=== PATIENT | male | born 1965 | race Caucasian/White ===

== ENCOUNTER 2022-10-04 13:43 | Emergency (ER) | payer OTHER ==
[2022-10-04 14:05] VITALS: TEMP 98.2
[2022-10-04] MEDS ORDERED: SODIUM CHLORIDE 0.9% 1,000 ML IV STA (14:33)
[2022-10-04] MEDS ORDERED: SODIUM CHLORIDE 0.9% 500 ML 500 ML IV STA (14:33)
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
[2022-10-04 15:13] LABS: Appearance,Urine Clear (Clear); Bilirubin,Urine Negative (Negative); Blood,Urine Negative (Negative); Color,Urine Colorless; Glucose,Urine (UA) Negative (Negative); Ketones,Urine Negative (Negative); Leukocyte Esterase,Urine Negative (Negative); Nitrite,Urine Negative (Negative); PH, Urine 5.5 (5.0-8.0); Protein,Urine Negative (Negative); Specific Gravity,Urine 1.002 (1.001-1.035); Urobilinogen,Urine <2.0 mg/dL (<2.0)
[2022-10-04 15:15] LABS: Anisocytosis Moderate; HCT 38.1 % (39.0-53.0); HGB 13.8 gm/dL (13.0-17.5); MCH 33.1 pg (25.0-35.0); MCHC 36.1 g/dL (31.0-37.0); MCV 91.7 fL (80.0-100.0); Mean Platelet Volume 8.2; Platelet Count 217 k/uL (150-450); RBC 4.16 m/uL (4.30-5.90); RDW 20.2 % (11.5-15.5); WBC 6.2 k/uL (3.8-10.6)
--- NOTE | 2022-10-04 15:24 | XR ---
EXAMINATION TYPE: XR chest 2V DATE OF EXAM: 10/04/2022 COMPARISON: None HISTORY: 57-year-old male with cough TECHNIQUE: PA and lateral views FINDINGS: Heart borderline enlarged. Mild hyperinflation. No consolidation or pleural effusion. Mild anterior w edging near the thoracolumbar junction. IMPRESSION: 1. Borderline heart size. Mild hyperinflation may relate to depth of inspiration or underlying emphys jacoby. Clinically correlate. Otherwise, no acute process seen. 2. Mild anterior wedging near the thoracolumbar junction suggests an age indeterminate mild compressi on injury. Correlate for any focal pain at this level.
[2022-10-04 15:25] LABS: Amphetamine Screen,Urine Not Detected (NotDetected); Barbiturate Screen,Urine Not Detected (NotDetected); Benzodiazepines Screen,Urine Not Detected (NotDetected); Cocaine Screen,Urine Not Detected (NotDetected); Methadone Screen, Urine Not Detected (NotDetected); Opiate Screen,Urine Not Detected (NotDetected); Oxycodone Screen, Urine Not Detected (NotDetected); Phencyclidine Screen,Urine Not Detected (NotDetected); Tricyclic Antidepressant,Urine Not Detected (NotDetected); Urn Cannabinoid Scrn Not Detected (NotDetected)
[2022-10-04] MEDS ORDERED: LORazepam 2 MG/ML INJ IV PRN ×2 (15:30)
[2022-10-04 15:40] LABS: ALT 31 U/L (4-49); AST 50 U/L (17-59); African American GFR (CKD) >90 (>60 ml/min/1.73 sqM); Albumin 4.2 g/dL (3.5-5.0); Alkaline Phosphatase 69 U/L (38-126); Anion Gap 13 mmol/L; Blood Urea Nitrogen 12 mg/dL (9-20); Carbon Dioxide 27 mmol/L (22-30); Chloride 104 mmol/L (98-107); Lipase 189 U/L (23-300); Magnesium 1.8 mg/dL (1.6-2.3); Non-African American GFR(CKD) >90 (>60 ml/min/1.73 sqM); Potassium 4.3 mmol/L (3.5-5.1); Sodium 144 mmol/L (137-145); Total Bilirubin 0.6 mg/dL (0.2-1.3); Total Protein 7.5 g/dL (6.3-8.2)
[2022-10-04 15:48] LABS: Glucose 108 mg/dL (74-99)
[2022-10-04 15:54] LABS: Eosinophils # (M) 0.93 k/uL (0-0.7); Lymphocytes # (M) 2.23 k/uL (1.0-4.8); Monocytes # (M) 0.62 k/uL (0-1.0); Neutrophils # (M) 2.42 k/uL (1.3-7.7); Neutrophils % (M) 39 %; Nucleated Red Blood Cells 0 /100 WBC (0-0); Total Cells Counted 100
[2022-10-04 15:55] LABS: Polychromasia Present
[2022-10-04] MEDS: LORazepam 2 MG/ML INJ IV PRN ×2 (16:01→20:19)
[2022-10-04 16:21] VITALS: RESP 18
[2022-10-05 02:03] VITALS: BP 145/87; PULSE 86
[2022-10-05] MEDS ORDERED: THIAMINE 100 MG TAB PO SCH (09:00)
== END 2022-10-05 02:48 | disposition home or self-care (01) ==
LOC: EC 13:43
DX: Z00.8 Encounter for other general examination (principal); F10.129 Alcohol abuse with intoxication, unspecified; F12.90 Cannabis use, unspecified, uncomplicated; Z77.22 Contact with and (suspected) exposure to environmental tobacco smoke (acute) (chronic); Z88.0 Allergy status to penicillin; Z88.5 Allergy status to narcotic agent
CPT/HCPCS: 82075; 36415; 80053; 84443; 83690; 83735; 85025; 81003; 80306; 71046; 99285; 96374; 96376; 96361; J2060

== ENCOUNTER → 2022-12-22 | Outpatient (CLI) | payer OTHER ==
--- NOTE | 2022-12-22 09:38 | US ---
EXAMINATION TYPE: US abdomen limited DATE OF EXAM: 12/22/2022 COMPARISON: NONE CLINICAL INDICATION: Male, 57 years old with history of R10.13 EPIGASTRIC PAIN; Pt states epigastric pain TECHNIQUE: Multiple sonographic images of the right upper quadrant are obtained. FINDINGS: EXAM MEASUREMENTS: Liver Length: 14.4 cm Gallbladder Wall: 0.2 cm CBD: 0.3 cm Right Kidney: 11.8 x 5.8 x 6.6 cm MANUFACTURING PLANNER NOTES: Pancreas: wnl, tail obscured by overlying bowel gas Liver: Heterogeneous with possible fatty sparing near GB Gallbladder: wnl Evidence for sonographic Hall's sign: No CBD: wnl Right Kidney: wnl, lower pole gassed out IMPRESSION: Hepatic steatosis with underlying areas of focal fatty sparing.
== END | disposition home or self-care (01) ==
LOC: RADUSWWP 08:40
PROVIDERS: ATTEND Family Medicine
DX: K76.0 Fatty (change of) liver, not elsewhere classified (principal); R10.13 Epigastric pain
CPT/HCPCS: 76705

== ENCOUNTER 2024-06-08 21:50 | Inpatient (IN) | payer MEDICARE, OTHER ==
[2024-06-08] MEDS ORDERED: LORazepam 2 MG/ML INJ IV PRN ×2 (21:56)
[2024-06-08] MEDS ORDERED: NALOXONE 0.4 MG/ML 1 ML VIAL IV PRN (21:56)
[2024-06-08] MEDS ORDERED: LORazepam 1 MG TAB PO PRN (21:56)
--- NOTE | 2024-06-08 22:00 | ED ---
Recheck HPI - General Chief Complaint: Recheck/Abnormal Lab/Rx Stated Complaint: ETOH Time Seen by Provider: 06/08/24 21:51 Source: patient, EMS, RN notes reviewed, old records reviewed Mode of arrival: EMS Limitations: no limitations - History of Present Illness Initial Comments: This is a 59-year-old male to the ER for evaluation. Patient in today for evaluation regards to alcohol withdrawal alcohol intoxication and elevated lipase levels and history of pancreatitis, patient accepted in transfer from outside hospital MD Complaint: abnormal lab (Elevated lipase) -: unknown Symptoms Since Prior Visit: worsening pain Context: called for abnormal lab result Associated Symptoms: none Treatments Prior to Arrival: Given Pain Meds on - Related Data Home Medications Medication Instructions Recorded Confirmed DULoxetine HCL [Cymbalta] 60 mg PO DAILY 06/09/24 06/09/24 LORazepam [Ativan] 1 mg PO BID PRN 06/09/24 06/09/24 Multivitamins, Thera [Multivitamin 1 tab PO DAILY 06/09/24 06/09/24 (formulary)] Omeprazole 20 mg PO BID 06/09/24 06/09/24 Previous Rx's Medication Instructions Recorded ARIPiprazole [Abilify] 5 mg PO DAILY 30 Days #30 tab 06/12/24 Thiamine [Vitamin B-1] 100 mg PO DAILY 30 Days #30 tab 06/12/24 Allergies Allergy/AdvReac Type Severity Reaction Status Date / Time Penicillins Allergy Unknown Verified 06/09/24 10:47 Childhood codeine AdvReac increased Verified 06/09/24 10:47 anger Review of Systems ROS Statement: Those systems with pertinent positive or pertinent negative responses have been documented in the HPI. ROS Other: All systems not noted in ROS Statement are negative. Past Medical History Past Medical History: GERD/Reflux History of Any Multi-Drug Resistant Organisms: None Reported Past Surgical History: Appendectomy, Hernia Repair Past Psychological History: Depression, PTSD Smoking Status: Never smoker, Second hand smoke exposure Past Alcohol Use History: Abuse, Daily, Heavy Past Drug Use History: Marijuana General Exam General appearance: alert, in no apparent distress Head exam: Present: atraumatic, normocephalic, normal inspection Eye exam: Present: normal appearance, PERRL, EOMI. Absent: scleral icterus, conjunctival injection, periorbital swelling ENT exam: Present: normal exam, mucous membranes moist Neck exam: Present: normal inspection. Absent: tenderness, meningismus, lymphadenopathy Respiratory exam: Present: normal lung sounds bilaterally. Absent: respiratory distress, wheezes, rales, rhonchi, stridor Cardiovascular Exam: Present: regular rate, normal rhythm, normal heart sounds. Absent: systolic murmur, diastolic murmur, rubs, gallop, clicks GI/Abdominal exam: Present: soft, normal bowel sounds. Absent: distended, te nderness, guarding, rebound, rigid Extremities exam: Present: normal inspection, full ROM, normal capillary refill. Absent: tenderness, pedal edema, joint swelling, calf tenderness Back exam: Present: normal inspection Neurological exam: Present: alert, oriented X3, CN II-XII intact Psychiatric exam: Present: normal affect, normal mood Skin exam: Present: warm, dry, intact, normal color. Absent: rash Course Vital Signs 06/08/24 06/08/24 06/09/24 21:51 22:54 02:37 Temperature 98.2 F Pulse Rate 118 H 105 H 93 Respiratory 18 18 18 Rate Blood Pressure 179/104 151/94 151/98 O2 Sat by Pulse 96 97 97 Oximetry - Reevaluation(s) Reevaluation #1: 06/08/24 21:58 Medical records reviewed Reevaluation #2: 06/08/24 21:58 Patient symptoms unchanged Reevaluation #3: 06/08/24 21:59 Patient informed of results and questions answered Reevaluation #4: Was pt. sent in by a medical professional or institution (, PA, AIRPORT OPERATIONS COORDINATOR, urgent care, hospital, or halfway...) When possible be specific @ -no Did you speak to anyone other than the patient for history (EMS, parent, family, police, friend...)? What history was obtained from this source @ -no Did you review nursing and triage notes (agree or disagree)? Why? @ -agree Are old charts reviewed (outside hosp., previous admission, EMS record, old EKG, old radiological studies, urgent care reports/EKG's, halfway records)? R eport findings @ -yes Differential Diagnosis (chest pain, altered mental status, abdominal pain women, abdominal pain men, vaginal bleeding, weakness, fever, dyspnea, syncope, headache, dizziness, GI bleed, back pain, seizure, CVA, palpatations, mental health, musculoskeletal)? @ -prior EKG interpreted by me (3pts min.). @ -no X-rays interpreted by me (1pt min.). @ -no CT interpreted by me (1pt min.). @ -no U/S interpreted by me (1pt. min.). @ -no What testing was considered but not performed or refused? (CT, X-rays, U/S, labs)? Why? @ -none What meds were considered but not given or refused? Why? @ -none Did you discuss the management of the patient with other professionals (paul maya i.e. , PA, AIRPORT OPERATIONS COORDINATOR, lab, RT, psych nurse, social worker health services, grocery carrier, teacher, chief analytics officer, mattress spring encaser)? Give summary @ -no Was smoking cessation discussed for >3mins.? @ -no Was critical care preformed (if so, how long)? @ -no Were there social determinants of health that impacted care today? How? (Homelessness, low income, unemployed, alcoholism, drug addiction, transportation, low edu. Level, literacy, decrease access to med. care, alf, rehab)? @ -none Was there de-escalation of care discussed even if they declined (Discuss DNR or withdrawal of care, Hospice)? DNR status @ -no What co-morbidities impacted this encounter? (DM, HTN, Smoking, COPD, CAD, Cancer, CVA, ARF, Chemo, Hep., AIDS, mental health diagnosis, sleep apnea, morbid obesity)? @ -none Was patient admitted / discharged? Hospital course, mention meds given and route, prescriptions, significant lab abnormalities, going to OR and other pertinent info. @ - 59 male will be admitted for pending alcohol withdrawal with current alcohol intoxication and pancreatitis patient is excepted from outside facility Admitted Undiagnosed new problem with uncertain prognosis? @ -no Drug Therapy requiring intensive monitoring for toxicity (Heparin, Nitro, Insulin, Cardizem)? @ -no Were any procedures done? @ -no Diagnosis/symptom? @ -Alcohol withdrawal pancreatitis Acute, or Chronic, or Acute on Chronic? @ -Acute Uncomplicated (without systemic symptoms) or Complicated (systemic symptoms)? @ -Complicated Side effects of treatment? @ -no Exacerbation, Progression, or Severe Exacerbation? @ -exacerbation Poses a threat to life or bodily function? How? (Chest pain, [place], [place], pneumonia, PE, COPD, DKA, ARF, appy, cholecystitis, CVA, Diverticulitis, Homicidal, Suicidal, threat to staff... and all critical care pts) @ -yes alcohol withdrawal pancreatitis - Consultations Consultation #1: Spoke with rosina who agrees to admit this patient Medical Decision Making - Medical Decision Making 59 male will be admitted for pending alcohol withdrawal with current alcohol intoxication and pancreatitis patient is excepted from outside facility - Lab Data Result diagrams: 06/12/24 04:39 06/12/24 04:39 Lab Results 06/08/24 06/08/24 06/08/24 Range/Units 22:00 22:00 22:00 WBC 10.7 H (3.8-10.6) k/uL RBC 4.21 L (4.30-5.90) m/uL Hgb 13.7 (13.0-17.5) gm/dL Hct 40.0 (39.0-53.0) % MCV 94.9 (80.0-100.0) fL MCH 32.6 (25.0-35.0) pg MCHC 34.3 (31.0-37.0) g/dL RDW 15.9 H (11.5-15.5) % Plt Count 306 (150-450) k/uL MPV 7.9 Immature Gran % (Auto) % Absolute Nucleated RBC % Neutrophils % 82 % Lymphocytes % 10 % Monocytes % 6 % Eosinophils % 1 % Basophils % 0 % Immature Gran # (0.00-0.04) X 10*3/uL Neutrophils # 8.8 H (1.3-7.7) k/uL Lymphocytes # 1.1 (1.0-4.8) k/uL Monocytes # 0.6 (0-1.0) k/uL Eosinophils # 0.1 (0-0.7) k/uL Basophils # 0.0 (0-0.2) k/uL NRBC/100 WBC Diff (0.00-0.01) X 10*3/uL Sodium 141 (137-145) mmol/L Potassium 4.5 (3.5-5.1) mmol/L Chloride 104 (98-107) mmol/L Carbon Dioxide 19 L (22-30) mmol/L Anion Gap 18 mmol/L BUN 7 L (9-20) mg/dL Creatinine 0.70 (0.66-1.25) mg/dL Est GFR (CKD-EPI) (>=60) Est GFR (CKD-EPI)AfAm >90 (>60 ml/min/1.73 sqM) Est GFR (CKD-EPI)NonAf >90 (>60 ml/min/1.73 sqM) BUN/Creatinine Ratio (12.00-20.00) Ratio Glucose 108 H (74-99) mg/dL Lactic Ac Sepsis Rflx Plasma Lactic Acid Eamon 4.2 H* (0.7-2.0) mmol/L Calcium 8.8 (8.4-10.2) mg/dL Magnesium 2.1 (1.6-2.3) mg/dL Total Bilirubin 1.0 (0.2-1.3) mg/dL AST 47 (17-59) U/L ALT 41 (4-49) U/L Alkaline Phosphatase 107 (38-126) U/L Troponin I (0.000-0.034) ng/mL Total Protein 7.3 (6.3-8.2) g/dL Albumin 4.5 (3.5-5.0) g/dL Globulin (1.6-3.3) g/dL Albumin/Globulin Ratio (1.60-3.17) Ratio Amylase (23-121) U/L Lipase 304 H (23-300) U/L 06/08/24 06/08/24 06/09/24 Range/Units 22:00 23:27 01:42 WBC 9.0 (3.8-10.6) k/uL RBC 4.10 L (4.30-5.90) m/uL Hgb 13.6 (13.0-17.5) gm/dL Hct 39.2 (39.0-53.0) % MCV 95.7 (80.0-100.0) fL MCH 33.3 (25.0-35.0) pg MCHC 34.8 (31.0-37.0) g/dL RDW 15.6 H (11.5-15.5) % Plt Count 273 (150-450) k/uL MPV 7.3 Immature Gran % (Auto) % Absolute Nucleated RBC % Neutrophils % 78 % Lymphocytes % 11 % Monocytes % 8 % Eosinophils % 1 % Basophils % 1 % Immature Gran # (0.00-0.04) X 10*3/uL Neutrophils # 7.0 (1.3-7.7) k/uL Lymphocytes # 1.0 (1.0-4.8) k/uL Monocytes # 0.7 (0-1.0) k/uL Eosinophils # 0.1 (0-0.7) k/uL Basophils # 0.1 (0-0.2) k/uL NRBC/100 WBC Diff (0.00-0.01) X 10*3/uL Sodium (137-145) mmol/L Potassium (3.5-5.1) mmol/L Chloride (98-107) mmol/L Carbon Dioxide (22-30) mmol/L Anion Gap mmol/L BUN (9-20) mg/dL Creatinine (0.66-1.25) mg/dL Est GFR (CKD-EPI) (>=60) Est GFR (CKD-EPI)AfAm (>60 ml/min/1.73 sqM) Est GFR (CKD-EPI)NonAf (>60 ml/min/1.73 sqM) BUN/Creatinine Ratio (12.00-20.00) Ratio Glucose (74-99) mg/dL Lactic Ac Sepsis Rflx Y Plasma Lactic Acid Eamon (0.7-2.0) mmol/L Calcium (8.4-10.2) mg/dL Magnesium (1.6-2.3) mg/dL Total Bilirubin (0.2-1.3) mg/dL AST (17-59) U/L ALT (4-49) U/L Alkaline Phosphatase (38-126) U/L Troponin I <0.012 (0.000-0.034) ng/mL Total Protein (6.3-8.2) g/dL Albumin (3.5-5.0) g/dL Globulin (1.6-3.3) g/dL Albumin/Globulin Ratio (1.60-3.17) Ratio Amylase (23-121) U/L Lipase (23-300) U/L 06/09/24 06/09/24 06/10/24 Range/Units 01:42 01:49 05:56 WBC 6.32 (3.8-10.6) k/uL RBC 4.05 L (4.30-5.90) m/uL Hgb 13.1 (13.0-17.5) gm/dL Hct 39.1 L (39.0-53.0) % MCV 96.5 (80.0-100.0) fL MCH 32.3 H (25.0-35.0) pg MCHC 33.5 (31.0-37.0) g/dL RDW 15.6 H (11.5-15.5) % Plt Count 198 (150-450) k/uL MPV 9.7 Immature Gran % (Auto) 0.60 % Absolute Nucleated RBC 0.30 % Neutrophils % 68.6 % Lymphocytes % 12.3 % Monocytes % 11.2 % Eosinophils % 6.5 % Basophils % 0.8 % Immature Gran # 0.04 (0.00-0.04) X 10*3/uL Neutrophils # 4.33 (1.3-7.7) k/uL Lymphocytes # 0.78 L (1.0-4.8) k/uL Monocytes # 0.71 (0-1.0) k/uL Eosinophils # 0.41 H (0-0.7) k/uL Basophils # 0.05 (0-0.2) k/uL NRBC/100 WBC Diff 0.02 H (0.00-0.01) X 10*3/uL Sodium 139 (137-145) mmol/L Potassium 3.9 (3.5-5.1) mmol/L Chloride 103 (98-107) mmol/L Carbon Dioxide 22 (22-30) mmol/L Anion Gap 14 mmol/L BUN 7 L (9-20) mg/dL Creatinine 0.72 (0.66-1.25) mg/dL Est GFR (CKD-EPI) (>=60) Est GFR (CKD-EPI)AfAm >90 (>60 ml/min/1.73 sqM) Est GFR (CKD-EPI)NonAf >90 (>60 ml/min/1.73 sqM) BUN/Creatinine Ratio (12.00-20.00) Ratio Glucose 131 H (74-99) mg/dL Lactic Ac Sepsis Rflx Plasma Lactic Acid Eamon 1.7 (0.7-2.0) mmol/L Calcium 8.7 (8.4-10.2) mg/dL Magnesium (1.6-2.3) mg/dL Total Bilirubin 1.0 (0.2-1.3) mg/dL AST 40 (17-59) U/L ALT 40 (4-49) U/L Alkaline Phosphatase 111 (38-126) U/L Troponin I (0.000-0.034) ng/mL Total Protein 7.0 (6.3-8.2) g/dL Albumin 4.2 (3.5-5.0) g/dL Globulin (1.6-3.3) g/dL Albumin/Globulin Ratio (1.60-3.17) Ratio Amylase (23-121) U/L Lipase 147 (23-300) U/L 06/10/24 06/11/24 06/11/24 Range/Units 05:56 04:58 04:58 WBC 6.92 (3.8-10.6) k/uL RBC 3.93 L (4.30-5.90) m/uL Hgb 12.8 L (13.0-17.5) gm/dL Hct 37.9 L (39.0-53.0) % MCV 96.4 (80.0-100.0) fL MCH 32.6 H (25.0-35.0) pg MCHC 33.8 (31.0-37.0) g/dL RDW 15.6 H (11.5-15.5) % Plt Count 186 (150-450) k/uL MPV 10.0 Immature Gran % (Auto) 0.90 % Absolute Nucleated RBC 0 % Neutrophils % 66.2 % Lymphocytes % 12.1 % Monocytes % 12.4 % Eosinophils % 7.2 % Basophils % 1.2 % Immature Gran # 0.06 H (0.00-0.04) X 10*3/uL Neutrophils # 4.58 (1.3-7.7) k/uL Lymphocytes # 0.84 L (1.0-4.8) k/uL Monocytes # 0.86 (0-1.0) k/uL Eosinophils # 0.50 H (0-0.7) k/uL Basophils # 0.08 (0-0.2) k/uL NRBC/100 WBC Diff 0 (0.00-0.01) X 10*3/uL Sodium 142 140 (137-145) mmol/L Potassium 3.5 3.2 L (3.5-5.1) mmol/L Chloride 102 103 (98-107) mmol/L Carbon Dioxide 26.9 26.2 (22-30) mmol/L Anion Gap 13.10 H 10.80 mmol/L BUN 5.0 L 5.0 L (9-20) mg/dL Creatinine 0.8 0.8 (0.66-1.25) mg/dL Est GFR (CKD-EPI) 101 101 (>=60) Est GFR (CKD-EPI)AfAm (>60 ml/min/1.73 sqM) Est GFR (CKD-EPI)NonAf (>60 ml/min/1.73 sqM) BUN/Creatinine Ratio 6.25 L 6.25 L (12.00-20.00) Ratio Glucose 123 H 123 H (74-99) mg/dL Lactic Ac Sepsis Rflx Plasma Lactic Acid E[place] (0.7-2.0) mmol/L Calcium 8.9 8.7 (8.4-10.2) mg/dL Magnesium (1.6-2.3) mg/dL Total Bilirubin 0.7 0.6 (0.2-1.3) mg/dL AST 44 H 41 H (17-59) U/L ALT 35 33 (4-49) U/L Alkaline Phosphatase 95 88 (38-126) U/L Troponin I (0.000-0.034) ng/mL Total Protein 6.3 6.1 L (6.3-8.2) g/dL Albumin 3.9 3.6 L (3.5-5.0) g/dL Globulin 2.4 2.5 (1.6-3.3) g/dL Albumin/Globulin Ratio 1.62 1.44 L (1.60-3.17) Ratio Amylase 45 (23-121) U/L Lipase 43 (23-300) U/L Disposition Clinical Impression: Pancreatitis, Alcohol intoxication, Alcohol withdrawal Disposition: ADMITTED IP TO THIS HOSP Condition: Fair Is patient prescribed a controlled substance at d/c from ED?: No Time of Disposition: 22:00
[2024-06-08] MEDS: ONDANSETRON 4 MG/2 ML VIAL IVP STA (22:09)
[2024-06-08] MEDS: MORPHINE SULFATE 4 MG/ML SYRINGE IV STA (22:10)
[2024-06-08] MEDS: LORazepam 2 MG/ML INJ IV PRN (22:10)
[2024-06-08] MEDS: SODIUM CHLORIDE 0.9% 1,000 ML IV STA (22:12)
[2024-06-08 22:33] LABS: Basophils % (A) 0 %; Eosinophils # (A) 0.1 k/uL (0-0.7); Eosinophils % (A) 1 %; HGB 13.7 gm/dL (13.0-17.5); Lymphocytes # (A) 1.1 k/uL (1.0-4.8); Lymphocytes % (A) 10 %; MCH 32.6 pg (25.0-35.0); MCHC 34.3 g/dL (31.0-37.0); MCV 94.9 fL (80.0-100.0); Mean Platelet Volume 7.9; Monocytes # (A) 0.6 k/uL (0-1.0); Monocytes % (A) 6 %; Neutrophils # (A) 8.8 k/uL (1.3-7.7); Neutrophils % (A) 82 %; Platelet Count 306 k/uL (150-450); RBC 4.21 m/uL (4.30-5.90); RDW 15.9 % (11.5-15.5); WBC 10.7 k/uL (3.8-10.6)
[2024-06-08 22:37] LABS: ALT 41 U/L (4-49); African American GFR (CKD) >90 (>60 ml/min/1.73 sqM); Albumin 4.5 g/dL (3.5-5.0); Anion Gap 18 mmol/L; Blood Urea Nitrogen 7 mg/dL (9-20); Calcium 8.8 mg/dL (8.4-10.2); Carbon Dioxide 19 mmol/L (22-30); Chloride 104 mmol/L (98-107); Glucose 108 mg/dL (74-99); Lipase 304 U/L (23-300); Non-African American GFR(CKD) >90 (>60 ml/min/1.73 sqM); Sodium 141 mmol/L (137-145); Total Protein 7.3 g/dL (6.3-8.2)
[2024-06-08 22:44] LABS: AST 47 U/L (17-59); Alkaline Phosphatase 107 U/L (38-126); Magnesium 2.1 mg/dL (1.6-2.3); Potassium 4.5 mmol/L (3.5-5.1)
[2024-06-08] MEDS: DEXTROSE 5%-0.45% NACL 1,000 ML IV SCH (22:52)
[2024-06-09 02:05] LABS: Basophils # (A) 0.1 k/uL (0-0.2); Basophils % (A) 1 %; Eosinophils # (A) 0.1 k/uL (0-0.7); Eosinophils % (A) 1 %; HCT 39.2 % (39.0-53.0); HGB 13.6 gm/dL (13.0-17.5); Lymphocytes % (A) 11 %; MCH 33.3 pg (25.0-35.0); MCHC 34.8 g/dL (31.0-37.0); MCV 95.7 fL (80.0-100.0); Mean Platelet Volume 7.3; Monocytes # (A) 0.7 k/uL (0-1.0); Monocytes % (A) 8 %; Neutrophils % (A) 78 %; Platelet Count 273 k/uL (150-450); RDW 15.6 % (11.5-15.5)
[2024-06-09 02:14] LABS: ALT 40 U/L (4-49); AST 40 U/L (17-59); African American GFR (CKD) >90 (>60 ml/min/1.73 sqM); Albumin 4.2 g/dL (3.5-5.0); Alkaline Phosphatase 111 U/L (38-126); Anion Gap 14 mmol/L; Blood Urea Nitrogen 7 mg/dL (9-20); Calcium 8.7 mg/dL (8.4-10.2); Carbon Dioxide 22 mmol/L (22-30); Chloride 103 mmol/L (98-107); Glucose 131 mg/dL (74-99); Lipase 147 U/L (23-300); Non-African American GFR(CKD) >90 (>60 ml/min/1.73 sqM); Potassium 3.9 mmol/L (3.5-5.1); Sodium 139 mmol/L (137-145)
[2024-06-09] MEDS: MULTIVITAMINS, THERA 1 EACH TAB PO SCH (08:50)
[2024-06-09] MEDS: PANTOPRAZOLE 40 MG/10 ML VIAL IV SCH (08:50)
[2024-06-09] MEDS: FOLIC ACID 1 MG TAB PO SCH (08:50)
[2024-06-09] MEDS: ONDANSETRON 4 MG/2 ML VIAL IVP PRN (08:50)
--- NOTE | 2024-06-09 10:58 | P.HPIM ---
History of Present Illness H&P Date: 06/09/24 Malik hernandez is a 59-year-old male patient of Dr. Nobles who presented with concerns of alcohol intoxication and withdrawal patient also noted to have elevated lipase levels with a history of pancreatitis. Patient originally presented to [facility] and was transferred for further treatment. Patient has an extensive EtOH history patient admits to drinking 1/5 a day of hard liquor. Additional medical history includes GERD, depression, PTSD and marijuana use. Patient reports he had EGD completed approximately 4 months ago not currently in our records. Patient denies anything significant we will attempt to obtain. Lab work completed showing white blood cell 10.7, hemoglobin 13.7, platelet count 306, creatinine 0.70 bun 7 initial lactic acid 4.2 repeat 1.7. AST 47 ALT 41 alkaline phosphatase 107. Lipase level 304. At this time patient is sitting up comfortably in bed patient reports improvement with nausea and vomiting. Patient admitted and will be started on alcohol withdrawal protocol. Current vital signs temp 98.1, heart rate 87, respiratory rate 17, blood pressure 146/89 with a pulse ox of 97% on room air. Patient denies chest pain or shortness of breath. Patient denies nausea vomiting or diarrhea. Patient denies any urinary burning or frequency Review of Systems Please refer to HPI otherwise unremarkable Past Medical History Past Medical History: GERD/Reflux History of Any Multi-Drug Resistant Organisms: None Reported Past Surgical History: Appendectomy, Hernia Repair Past Anesthesia/Blood Transfusion Reactions: No Reported Reaction Past Psychological History: Depression, PTSD Smoking Status: Never smoker, Second hand smoke exposure Past Alcohol Use History: Abuse, Daily, Heavy Past Drug Use History: Marijuana Medications and Allergies Home Medications Medication Instructions Recorded Confirmed Type DULoxetine HCL [Cymbalta] 60 mg PO DAILY 06/09/24 06/09/24 History LORazepam [Ativan] 1 mg PO BID PRN 06/09/24 06/09/24 History Multivitamins, Thera [Multivitamin 1 tab PO DAILY 06/09/24 06/09/24 History (formulary)] Omeprazole 20 mg PO BID 06/09/24 06/09/24 History Allergies Allergy/AdvReac Type Severity Reaction Status Date / Time Penicillins Allergy Unknown Verified 06/09/24 10:47 Childhood codeine AdvReac increased Verified 06/09/24 10:47 anger Physical Exam Vitals: Vital Signs Temp Pulse Pulse Resp BP BP Pulse Ox 06/09/24 06:44 99.1 F 101 H 18 146/89 97 06/09/24 03:00 155/90 06/09/24 02:54 98.1 F 87 17 97 06/09/24 02:46 87 17 06/09/24 02:37 93 18 151/98 97 06/08/24 22:54 105 H 18 151/94 97 06/08/24 21:51 98.2 F 118 H 18 179/104 96 Intake and Output 06/08/24 06/09/24 06/09/24 22:59 06:59 14:59 Intake Total 650 Balance 650 Intake: Intake, IV Titration 400 Amount Dextrose 5%-0.45% NaCl 1, 400 000 ml @ 80 mls/hr IV . [id number] [facility] Rx#:[id number] Oral 250 Other: Voiding Method Toilet Urinal # Voids 3 Weight 83.915 kg 83.915 kg Head normocephalic Neck supple Lungs clear to auscultation bilaterally no wheezing or crackles Heart regular rate and rhythm S1-S2, no rub or gallop Abdomen is soft nontender nondistended positive bowel sounds no h epatosplenomegaly Extremities no edema Neuro alert and orientated to 3 Results CBC & Chem 7: 06/09/24 01:42 06/09/24 01:42 Labs: Abnormal Lab Results - Last 24 Hours (Table) 06/08/24 06/08/24 06/08/24 Range/Units 22:00 22:00 22:00 WBC 10.7 H (3.8-10.6) k/uL RBC 4.21 L (4.30-5.90) m/uL RDW 15.9 H (11.5-15.5) % Neutrophils # 8.8 H (1.3-7.7) k/uL Carbon Dioxide 19 L (22-30) mmol/L BUN 7 L (9-20) mg/dL Glucose 108 H (74-99) mg/dL Plasma Lactic Acid Eamon 4.2 H* (0.7-2.0) mmol/L Lipase 304 H (23-300) U/L 06/09/24 06/09/24 Range/Units 01:42 01:42 WBC (3.8-10.6) k/uL RBC 4.10 L (4.30-5.90) m/uL RDW 15.6 H (11.5-15.5) % Neutrophils # (1.3-7.7) k/uL Carbon Dioxide (22-30) mmol/L BUN 7 L (9-20) mg/dL Glucose 131 H (74-99) mg/dL Plasma Lactic Acid Eamon (0.7-2.0) mmol/L Lipase (23-300) U/L Thrombosis Risk Factor Assmnt - Choose All That Apply Any of the Below Risk Factors Present?: No Other Risk Factors: Yes Each Risk Factor Represents 2 Points: Age 61-74 years Other congenital or acquired thrombophilia - If yes, enter type in comment: No Thrombosis Risk Factor Assessment Total Risk Factor Score: 2 Thrombosis Risk Factor Assessment Level: Low Risk Assessment and Plan Assessment: 1. Nausea and vomiting likely secondary from alcohol intoxication 2. History of EtOH abuse patient reports he drinks 1/5 of hard liquor a day 3. History of GERD 4. History of depression and PTSD 5. History of marijuana use 6. History of appendectomy DVT prophylaxis Lovenox. GI prophylax Protonix General Surgery consult placed Alcohol withdrawal protocol initiated Repeat labs ordered Time with Patient: Greater than 30 (Greater than 60% of the total time spent in counseling and coordination of care)
[2024-06-09] MEDS: LORazepam 0.5 MG TAB PO PRN (12:36)
[2024-06-09] MEDS: DULoxetine HCL 60 MG CAPSULE.DR PO SCH (15:51)
[2024-06-09] MEDS: LORazepam 1 MG TAB PO PRN (23:41)
[2024-06-10] MEDS: ENOXAPARIN 40 MG/0.4 ML SYRINGE SQ SCH (08:27)
[2024-06-10 08:51] LABS: ALT 35 U/L (10-49); AST 44 U/L (14-35); Albumin 3.9 g/dL (3.8-4.9); Albumin/Globulin Ratio 1.62 Ratio (1.60-3.17); Alkaline Phosphatase 95 U/L (41-126); Amylase 45 U/L (23-121); BUN/Creat Ratio 6.25 Ratio (12.00-20.00); Calcium 8.9 mg/dL (8.7-10.3); Carbon Dioxide 26.9 mmol/L (21.6-31.8); Chloride 102 mmol/L (96-109); Globulin 2.4 g/dL (1.6-3.3); Glucose 123 mg/dL (70-110); Lipase 43 U/L (14-60); Potassium 3.5 mmol/L (3.5-5.5); Sodium 142 mmol/L (135-145); Total Bilirubin 0.7 mg/dL (0.3-1.2); Total Protein 6.3 g/dL (6.2-8.2)
[2024-06-10 09:59] LABS: Basophils # (A) 0.05 X 10*3/uL (0.00-0.10); Basophils % (A) 0.8 %; Eosinophils # (A) 0.41 X 10*3/uL (0.04-0.35); Eosinophils % (A) 6.5 %; HCT 39.1 % (39.6-50.0); HGB 13.1 g/dL (13.0-17.0); Lymphocytes # (A) 0.78 X 10*3/uL (0.90-5.00); Lymphocytes % (A) 12.3 %; MCH 32.3 pg (27.0-32.0); MCHC 33.5 g/dL (32.0-37.0); MCV 96.5 FL (80.0-97.0); Mean Platelet Volume 9.7 FL (9.5-12.2); Monocytes # (A) 0.71 X 10*3/uL (0.20-1.00); Monocytes % (A) 11.2 %; NRBC Per 100 WBC 0.02 X 10*3/uL (0.00-0.01); Neutrophils # (A) 4.33 X 10*3/uL (1.80-7.70); Neutrophils % (A) 68.6 %; Platelet Count 198 X 10*3/uL (140-440); RBC 4.05 X 10*6/uL (4.40-5.60); RDW 15.6 % (11.5-14.5); WBC 6.32 X 10*3/uL (4.50-10.00)
--- NOTE | 2024-06-10 11:33 | P.GSCN ---
History of Present Illness Consult date: 06/10/24 History of present illness: CHIEF COMPLAINT: Nausea and vomiting HISTORY OF PRESENT ILLNESS: This is a 59-year-old male with a known history of alcohol abuse disorder. Patient reports having nausea and vomiting after drinking alcohol. He presented to the hospital in regards to alcohol withdraw. Patient was transferred from an outside hospital. Patient denies any abdominal pain. He was able to tolerate diet this morning. Patient reports that there has been no blood in the vomiting. He reports it has been about a month and a half since he has had a small amount of blood-tinged emesis. Patient reports that when he vomits it is very forceful. Patient reports having a bowel movement this morning. He is very tearful regarding his situation and alcohol drinking. Past surgical history includes appendectomy and hernia repair. Patient denies any prior history of pancreatitis. PAST MEDICAL HISTORY: See below PAST SURGICAL HISTORY: See below MEDICATIONS: See below ALLERGIES: See below SOCIAL HISTORY: No illicit drug use. Heavy daily alcohol use REVIEW OF SYSTEMS: CONSTITUTIONAL: Denies fever or chills. HEENT: Denies blurred vision, vision changes, or eye pain. Denies hemoptysis CARDIOVASCULAR: Denies chest pain or pressure. RESPIRATORY: No shortness of breath. GASTROINTESTINAL: See HPI for pertinent findings HEMATOLOGIC: Denies bleeding disorders. GENITOURINARY: Denies any blood in urine or increased urinary frequency. SKIN: Denies pruitis. Denies rash. PHYSICAL EXAM: VITAL SIGNS: Reviewed GENERAL: Well-developed in no acute distress. HEENT: No sclera icterus. Extraocular movements grossly intact. Moist buccal mucosa. Head is atraumatic, normocephalic. No nasal drainage. ABDOMEN: Soft. Nondistended. Nontender NEUROLOGIC: Alert and oriented. Cranial nerves II through XII grossly intact. LABORATORY DATA: WBC 6.32 Hgb 13.1 platelets 198 Sodium 142 potassium 3.5 creatinine 0.8 Total bilirubin 0.7 AST 44 ALT 35 alk phos 95 Lipase 304 down to 43 IMAGING: ASSESSMENT: 1. Nausea and vomiting likely secondary to alcohol intoxication 2. History of alcohol abuse disorder 3. Minimally elevated lipase now normalized PLAN: -Continue regular diet -No surgical intervention planned -Continue supportive care -Continue [facility] protocol for alcohol intoxication -Recommend social work consult Physician Nut Sheller note has been reviewed by physician. Signing provider agrees with the documented findings, assessment, and plan of care. I have personally seen and examined the patient, reviewed the ANATOMIC PATHOLOGIST /PAs history, e xam and MDM and agree with the assessment and plan as written. Based on total visit time, I have performed more than 50% of the visit. As above: Patient presents to the hospital with multiple complaints. Among them the patient was having nausea and vomiting and some mild epigastric discomfort. Patient says he drinks 1/5 of liquor every 1 to 2 days. Patient says he has lost his place of residence. Very depressed. Tearful. Denies abdominal pain today. Tolerating regular diet currently. Lipase initially elevated at 304 but normalized. No abdominal imaging. Continue regular diet. Monitor for recurrent symptoms. No surgical intervention planned. Please reconsult if needed. Will sign off. Past Medical History Past Medical History: GERD/Reflux History of Any Multi-Drug Resistant Organisms: None Reported Past Surgical History: Appendectomy, Hernia Repair Past Anesthesia/Blood Transfusion Reactions: No Reported Reaction Past Psychological History: Depression, PTSD Smoking Status: Never smoker, Second hand smoke exposure Past Alcohol Use History: Abuse, Daily, Heavy Past Drug Use History: Marijuana Medications and Allergies Home Medications Medication Instructions Recorded Confirmed Type DULoxetine HCL [Cymbalta] 60 mg PO DAILY 06/09/24 06/09/24 History LORazepam [Ativan] 1 mg PO BID PRN 06/09/24 06/09/24 History Multivitamins, Thera [Multivitamin 1 tab PO DAILY 06/09/24 06/09/24 History (formulary)] RX: Omeprazole 20 mg PO BID 06/09/24 06/09/24 History Allergies Allergy/AdvReac Type Severity Reaction Status Date / Time Penicillins Allergy Unknown Verified 06/09/24 10:47 Childhood codeine AdvReac increased Verified 06/09/24 10:47 anger Surgical - Exam Vital Signs Temp Pulse Resp BP Pulse Ox 98.2 F 118 H 18 179/104 96 06/08/24 21:51 06/08/24 21:51 06/08/24 21:51 06/08/24 21:51 06/08/24 21:51 Results - Labs 06/10/24 05:56 06/10/24 05:56 Abnormal Lab Results - Last 24 Hours (Table) 06/10/24 06/10/24 Range/Units 05:56 05:56 RBC 4.05 L (4.40-5.60) X 10*6/uL Hct 39.1 L (39.6-50.0) % MCH 32.3 H (27.0-32.0) pg RDW 15.6 H (11.5-14.5) % Lymphocytes # 0.78 L (0.90-5.00) X 10*3/uL Eosinophils # 0.41 H (0.04-0.35) X 10*3/uL NRBC/100 WBC Diff 0.02 H (0.00-0.01) X 10*3/uL Anion Gap 13.10 H (4.00-12.00) mmol/L BUN 5.0 L (9.0-27.0) mg/dL BUN/Creatinine Ratio 6.25 L (12.00-20.00) Ratio Glucose 123 H (70-110) mg/dL AST 44 H (14-35) U/L Diabetes panel 06/10/24 Range/Units 05:56 Sodium 142 (135-145) mmol/L Potassium 3.5 (3.5-5.5) mmol/L Chloride 102 (96-109) mmol/L Carbon Dioxide 26.9 (21.6-31.8) mmol/L BUN 5.0 L (9.0-27.0) mg/dL Creatinine 0.8 (0.6-1.5) mg/dL Glucose 123 H (70-110) mg/dL Calcium 8.9 (8.7-10.3) mg/dL AST 44 H (14-35) U/L ALT 35 (10-49) U/L Alkaline Phosphatase 95 (41-126) U/L Total Protein 6.3 (6.2-8.2) g/dL Albumin 3.9 (3.8-4.9) g/dL Calcium panel 06/10/24 Range/Units 05:56 Calcium 8.9 (8.7-10.3) mg/dL Albumin 3.9 (3.8-4.9) g/dL Pituitary panel 06/10/24 Range/Units 05:56 Sodium 142 (135-145) mmol/L Potassium 3.5 (3.5-5.5) mmol/L Chloride 102 (96-109) mmol/L Carbon Dioxide 26.9 (21.6-31.8) mmol/L BUN 5.0 L (9.0-27.0) mg/dL Creatinine 0.8 (0.6-1.5) mg/dL Glucose 123 H (70-110) mg/dL Calcium 8.9 (8.7-10.3) mg/dL Adrenal panel 06/10/24 Range/Units 05:56 Sodium 142 (135-145) mmol/L Potassium 3.5 (3.5-5.5) mmol/L Chloride 102 (96-109) mmol/L Carbon Dioxide 26.9 (21.6-31.8) mmol/L BUN 5.0 L (9.0-27.0) mg/dL Creatinine 0.8 (0.6-1.5) mg/dL Glucose 123 H (70-110) mg/dL Calcium 8.9 (8.7-10.3) mg/dL Total Bilirubin 0.7 (0.3-1.2) mg/dL AST 44 H (14-35) U/L ALT 35 (10-49) U/L Alkaline Phosphatase 95 (41-126) U/L Total Protein 6.3 (6.2-8.2) g/dL Albumin 3.9 (3.8-4.9) g/dL
[2024-06-10] MEDS: LORazepam 1 MG TAB PO PRN (16:20)
--- NOTE | 2024-06-10 18:34 | P.PN ---
Subjective Progress Note Date: 06/10/24 Malik hernandez is a 59-year-old male patient of Dr. Nobles who presented with concerns of alcohol intoxication and withdrawal patient also noted to have elevated lipase levels with a history of pancreatitis. Patient originally presented to [facility] and was transferred for further treatment. Latha rich has an extensive EtOH history patient admits to drinking 1/5 a day of hard liquor. Additional medical history includes GERD, depression, PTSD and marijuana use. Patient reports he had EGD completed approximately 4 months ago not currently in our records. Patient denies anything significant we will attempt to obtain. Lab work completed showing white blood cell 10.7, hemoglobin 13.7, platelet count 306, creatinine 0.70 bun 7 initial lactic acid 4.2 repeat 1.7. AST 47 ALT 41 alkaline phosphatase 107. Lipase level 304. At this time patient is sitting up comfortably in bed patient reports improvement with nausea and vomiting. Patient admitted and will be started on alcohol withdrawal protocol. Current vital signs temp 98.1, heart rate 87, respiratory rate 17, blood pressure 146/89 with a pulse ox of 97% on room air. Patient denies chest pain or shortness of breath. Patient denies nausea vomiting or diarrhea. Patient denies any urinary burning or frequency On 06/10/2024 patient was seen and examined on the medical floor he is alert and oriented x 3 in no apparent distress, he is still complaining of nausea and abdominal pain after eating otherwise he denies any complaints there is no fever or chills no headache or dizziness no chest pain no shortness of breath no cough no diarrhea no blood in the stools and no urinary symptoms. Objective - Vital Signs Vital signs: Vital Signs Temp 98.4 F 06/10/24 12:29 Pulse 75 06/10/24 12:29 Resp 16 06/10/24 12:29 BP 143/83 06/10/24 12:29 Pulse Ox 96 06/10/24 12:29 FiO2 Intake & Output 06/09/24 06/10/24 06/10/24 18:59 06:59 18:59 Intake Total 1659 1080 1520 Output Total 1200 Balance 1659 -120 1520 Intake: Intake, IV Titration 960 Amount Dextrose 5%-0.45% NaCl 1, 960 000 ml @ 80 mls/hr IV . [id number] [facility] Rx#:[id number] Oral [id number] 137 4004 Output: Urine 1200 Other: Voiding Method Toilet Toilet Urinal Urinal # Voids 3 3 - Exam Head normocephalic Neck supple Lungs clear to auscultation bilaterally no wheezing or crackles Heart regular rate and rhythm S1-S2, no rub or gallop Abdomen is soft nontender nondistended positive bowel sounds no hepatosplenomegaly Extremities no edema Neuro alert and orientated to 3 - Labs CBC & Chem 7: 06/10/24 05:56 06/10/24 05:56 Labs: Abnormal Lab Results - Last 24 Hours (Table) 06/10/24 06/10/24 Range/Units 05:56 05:56 RBC 4.05 L (4.40-5.60) X 10*6/uL Hct 39.1 L (39.6-50.0) % MCH 32.3 H (27.0-32.0) pg RDW 15.6 H (11.5-14.5) % Lymphocytes # 0.78 L (0.90-5.00) X 10*3/uL Eosinophils # 0.41 H (0.04-0.35) X 10*3/uL NRBC/100 WBC Diff 0.02 H (0.00-0.01) X 10*3/uL Anion Gap 13.10 H (4.00-12.00) mmol/L BUN 5.0 L (9.0-27.0) mg/dL BUN/Creatinine Ratio 6.25 L (12.00-20.00) Ratio Glucose 123 H (70-110) mg/dL AST 44 H (14-35) U/L Assessment and Plan Assessment: 1. Nausea and vomiting likely secondary from alcohol intoxication 2. History of EtOH abuse patient reports he drinks 1/5 of hard liquor a day 3. History of GERD 4. History of depression and PTSD 5. History of marijuana use 6. History of appendectomy 7. Severe depression with crying, patient stated that he had some suicidal ideation, at this time Lexapro 10 mg p.o. daily was added and psychiatry consultation was requested DVT prophylaxis Lovenox. GI prophylax Protonix General Surgery consult placed Alcohol withdrawal protocol initiated Repeat labs ordered
[2024-06-11 08:57] LABS: ALT 33 U/L (10-49); AST 41 U/L (14-35); Albumin 3.6 g/dL (3.8-4.9); Albumin/Globulin Ratio 1.44 Ratio (1.60-3.17); Alkaline Phosphatase 88 U/L (41-126); BUN/Creat Ratio 6.25 Ratio (12.00-20.00); Calcium 8.7 mg/dL (8.7-10.3); Carbon Dioxide 26.2 mmol/L (21.6-31.8); Chloride 103 mmol/L (96-109); Globulin 2.5 g/dL (1.6-3.3); Glucose 123 mg/dL (70-110); Potassium 3.2 mmol/L (3.5-5.5); Sodium 140 mmol/L (135-145); Total Bilirubin 0.6 mg/dL (0.3-1.2); Total Protein 6.1 g/dL (6.2-8.2)
[2024-06-11] MEDS: PANTOPRAZOLE 40 MG TABLET PO SCH (08:59)
[2024-06-11] MEDS: ESCITALOPRAM 10 MG TAB PO SCH (08:59)
[2024-06-11 10:50] LABS: Basophils # (A) 0.08 X 10*3/uL (0.00-0.10); Basophils % (A) 1.2 %; Eosinophils % (A) 7.2 %; HCT 37.9 % (39.6-50.0); HGB 12.8 g/dL (13.0-17.0); Lymphocytes # (A) 0.84 X 10*3/uL (0.90-5.00); Lymphocytes % (A) 12.1 %; MCH 32.6 pg (27.0-32.0); MCHC 33.8 g/dL (32.0-37.0); MCV 96.4 FL (80.0-97.0); Monocytes # (A) 0.86 X 10*3/uL (0.20-1.00); Monocytes % (A) 12.4 %; NRBC Per 100 WBC 0 X 10*3/uL (0.00-0.01); Neutrophils # (A) 4.58 X 10*3/uL (1.80-7.70); Neutrophils % (A) 66.2 %; Platelet Count 186 X 10*3/uL (140-440); RBC 3.93 X 10*6/uL (4.40-5.60); RDW 15.6 % (11.5-14.5); WBC 6.92 X 10*3/uL (4.50-10.00)
--- NOTE | 2024-06-11 12:40 | P.PN ---
Subjective Progress Note Date: 06/11/24 Malik hrenandez is a 59-year-old male patient of Dr. Nobles who presented with concerns of alcohol intoxication and withdrawal patient also noted to have elevated lipase levels with a history of pancreatitis. Patient originally presented to [facility] and was transferred for further treatment. Latha rich has an extensive EtOH history patient admits to drinking 1/5 a day of hard liquor. Additional medical history includes GERD, depression, PTSD and marijuana use. Patient reports he had EGD completed approximately 4 months ago not currently in our records. Patient denies anything significant we will attempt to obtain. Lab work completed showing white blood cell 10.7, hemoglobin 13.7, platelet count 306, creatinine 0.70 bun 7 initial lactic acid 4.2 repeat 1.7. AST 47 ALT 41 alkaline phosphatase 107. Lipase level 304. At this time patient is sitting up comfortably in bed patient reports improvement with nausea and vomiting. Patient admitted and will be started on alcohol withdrawal protocol. Current vital signs temp 98.1, heart rate 87, respiratory rate 17, blood pressure 146/89 with a pulse ox of 97% on room air. Patient denies chest pain or shortness of breath. Patient denies nausea vomiting or diarrhea. Patient denies any urinary burning or frequency On 06/10/2024 patient was seen and examined on the medical floor he is alert and oriented x 3 in no apparent distress, he is still complaining of nausea and abdominal pain after eating otherwise he denies any complaints there is no fever or chills no headache or dizziness no chest pain no shortness of breath no cough no diarrhea no blood in the stools and no urinary symptoms. On 06/11/2024 patient is alert and oriented x 3. Awaiting psychiatry input. Patient remains depressed. Patient denies chest pain or shortness of breath. Patient denies nausea vomiting or diarrhea. Patient denies any urinary burning or frequency. Current vital signs temp 98.5, heart 98, respiratory rate 20, blood pressure 140/79 with a pulse ox of 98% on room air Objective - Vital Signs Vital signs: Vital Signs Temp 98.5 F 06/11/24 08:00 Pulse 98 06/11/24 08:00 Resp 20 06/11/24 08:00 BP 160/84 06/11/24 08:00 Pulse Ox 98 06/11/24 02:00 FiO2 Intake & Output 06/10/24 06/11/24 06/11/24 18:59 06:59 18:59 Intake Total 1520 540 Output Total 1500 Balance 1520 -960 Intake: Oral 1520 540 Output: Urine 1500 Other: Voiding Method Toilet Urinal Urinal # Voids 3 2 - Exam Head normocephalic Neck supple Lungs clear to auscultation bilaterally no wheezing or crackles Heart regular rate and rhythm S1-S2, no rub or gallop Abdomen is soft nontender nondistended positive bowel sounds no hepatosplenomegaly Extremities no edema Neuro alert and orientated to 3 - Labs CBC & Chem 7: 06/11/24 04:58 06/11/24 04:58 Labs: Abnormal Lab Results - Last 24 Hours (Table) 06/11/24 06/11/24 Range/Units 04:58 04:58 RBC 3.93 L (4.40-5.60) X 10*6/uL Hgb 12.8 L (13.0-17.0) g/dL Hct 37.9 L (39.6-50.0) % MCH 32.6 H (27.0-32.0) pg RDW 15.6 H (11.5-14.5) % Immature Gran # 0.06 H (0.00-0.04) X 10*3/uL Lymphocytes # 0.84 L (0.90-5.00) X 10*3/uL Eosinophils # 0.50 H (0.04-0.35) X 10*3/uL Potassium 3.2 L (3.5-5.5) mmol/L BUN 5.0 L (9.0-27.0) mg/dL BUN/Creatinine Ratio 6.25 L (12.00-20.00) Ratio Glucose 123 H (70-110) mg/dL AST 41 H (14-35) U/L Total Protein 6.1 L (6.2-8.2) g/dL Albumin 3.6 L (3.8-4.9) g/dL Albumin/Globulin Ratio 1.44 L (1.60-3.17) Ratio Assessment and Plan Assessment: 1. Nausea and vomiting likely secondary from alcohol intoxication 2. History of EtOH abuse patient reports he drinks 1/5 of hard liquor a day 3. History of GERD 4. History of depression and PTSD 5. History of marijuana use 6. History of appendectomy 7. Severe depression with crying, patient stated that he had some suicidal ideation, at this time Lexapro 10 mg p.o. daily was added and psychiatry consultation was requested DVT prophylaxis Lovenox. GI prophylax Protonix General Surgery consult placed Alcohol withdrawal protocol initiated Repeat labs ordered
--- NOTE | 2024-06-11 14:43 | P.CN ---
Psychiatric Consult - . Consult date: 06/11/24 Consult:: 06/11/24 14:34 IDENTIFYING DATA: This patient is a 59-year-old male, lives with sister and on disability REASON FOR REFERRAL: Psychiatry was consulted for depression, alcohol misuse HISTORY OF PRESENT ILLNESS: The patient presented to the hospital on 06/08 with alcohol withdrawal and elevated lipase. Patient reportedly has been drinking 1/5 of hard liquor per day. Patient seen and evaluated in his room. He expresses a long-term history of roughly 40 years of alcohol misuse. He states he has gone to rehab once back in 2014 which led to a 3-year sobriety however he has since relapsed. He states during that time he was attending AA meetings and in therapy. He reports a history of PTSD related to his time in the . Ongoing stressors include his dad passing away his mom actively dying. He reports history of anger and mood instability. He does report low energy, anhedonia, hopelessness and appetite changes, denying any sleep difficulties. He denied any history of advid. He does report intermittent suicidal thoughts however denied any intent on acting on these thoughts, jessa for safety. At this time patient denies any suicidal or homical ideations, intent or plan. Patient denies any auditory, visual hallucinations and denies any paranoia or delusions. Patients admits to using alcohol, roughly 1/5 of liquor per day. PAST PSYCHIATRIC HISTORY: Patient has a history of depression, PTSD, anxiety. He states he has been on Cymbalta 60 mg for the past year and he does notice some benefit from this medication. He has tried several psychotropic medications in the past including Lexapro to which she did not find effective. He reports 1 previous inpatient hospitalization back in 2014. Patient denies any psychiatric outpatient follow-up. Reports 1 remote suicide attempt back at the age of 14/17 PAST MEDICAL HISTORY: GERD. ALLERGIES: as per EMR. CHEMICAL DEPENDENCY HISTORY: as per HPI. FAMILY PSYCHIATRIC/SUBSTANCE USE HISTORY: He reports strong family history of alcohol use, sister and mom both have depression and his cousin has bipolar disorder SOCIAL HISTORY: Patient was born and raised in [place]. He is single and has 1 son. He completed school up to the 10th grade and is currently on disability. He lives with his sister and [id number]. MENTAL STATUS EXAM: General Appearance: Patient appears to be stated age is alert, pleasant, and cooperative. Patient appears to have fair hygiene and grooming wearing hospital gown with fair eye contact. Behavior: Patient is calmly lying in bed without any agitated behavior. Intermittently tearful Speech: Patient's speech is fluent and nonpressured. Mood/Affect: Patient reports their mood is "depressed", affect is congruent Suicidality/Homicidality: Patient denies having any current suicidal or homicidal ideation intent or plan. Perceptions: Patient denies any visual hallucinations and denies any auditory hallucinations Though content/process: There is no evidence of any delusional thought content and thought process is circumstantial but logical. Memory and concentration: AOX3, grossly intact for the purposes of this session. Can spell "WORLD" backwards Judgment and insight: Poor IMPRESSIONS: Alcohol use disorder, severe in withdrawal Substance-induced mood disorder History of PTSD PLAN: -At this time patient DOES NOT meet criteria for inpatient psychiatric admission. -Would recommend the following medication changes/additions: Discontinue Lexapro 10 mg and add Abilify 5 mg daily as an adjunct, continue Cymbalta 60 mg daily and add thiamine 100 mg daily for alcohol use. Discussed with patient starting naltrexone however he declined stating it was ineffective in the past. Patient appeared to be contemplative/in preparation in regards to alcohol use and was agreeable with rehab upon discharge. Strongly encouraged given his long-term alcohol use and his current effects on his mental state -CIWA protocol with PRN Ativan for alcohol withdrawal. Continue to monitor vital signs. -market research worker to provide patient with outpatient mental health/psychiatry resources for appropriate follow up upon discharge -Vascular Physician spoke with patient about substance abuse and the harmful effects on medical and mental health, patient verbally understood and agreed. -market research worker to provide patient substance use treatment resources including AA/NA meetings in the community. -market research worker to provide patient with access line number to call for inpatient substance rehab -Communicated plan to patient's nurse -Psychiatry will sign off at this time -Please contact with any questions.
[2024-06-11] MEDS ORDERED: Potassium Replacement Protocol 1 EACH MISC MISCELLANE PRN (14:59)
[2024-06-11] MEDS: ARIPiprazole 5 MG TAB PO SCH (15:22)
[2024-06-11] MEDS: POTASSIUM CHLORIDE ER 20 MEQ TAB.ER PO SCH (15:22)
[2024-06-11] MEDS: MORPHINE SULFATE 4 MG/ML SYRINGE IV PRN (23:21)
[2024-06-12 01:22] VITALS: RESP 18
[2024-06-12 06:15] VITALS: BP 113/76; PULSE 93; TEMP 98.9
[2024-06-12] MEDS: THIAMINE 100 MG TAB PO SCH (08:01)
[2024-06-12 08:50] LABS: Glucose 104 mg/dL (70-110)
[2024-06-12 08:51] LABS: ALT 37 U/L (10-49); AST 42 U/L (14-35); Albumin 3.7 g/dL (3.8-4.9); Albumin/Globulin Ratio 1.42 Ratio (1.60-3.17); Alkaline Phosphatase 87 U/L (41-126); BUN/Creat Ratio 6.67 Ratio (12.00-20.00); Calcium 8.9 mg/dL (8.7-10.3); Chloride 100 mmol/L (96-109); Globulin 2.6 g/dL (1.6-3.3); Potassium 3.4 mmol/L (3.5-5.5); Sodium 138 mmol/L (135-145); Total Bilirubin 0.7 mg/dL (0.3-1.2); Total Protein 6.3 g/dL (6.2-8.2)
[2024-06-12 09:40] LABS: Basophils # (A) 0.07 X 10*3/uL (0.00-0.10); Basophils % (A) 0.7 %; Eosinophils # (A) 0.64 X 10*3/uL (0.04-0.35); Eosinophils % (A) 6.2 %; HCT 37.3 % (39.6-50.0); HGB 12.8 g/dL (13.0-17.0); Lymphocytes # (A) 1.15 X 10*3/uL (0.90-5.00); Lymphocytes % (A) 11.1 %; MCH 32.7 pg (27.0-32.0); MCHC 34.3 g/dL (32.0-37.0); MCV 95.4 FL (80.0-97.0); Mean Platelet Volume 10.3 FL (9.5-12.2); Monocytes # (A) 1.16 X 10*3/uL (0.20-1.00); Monocytes % (A) 11.2 %; NRBC Per 100 WBC 0 X 10*3/uL (0.00-0.01); Neutrophils # (A) 7.24 X 10*3/uL (1.80-7.70); Neutrophils % (A) 69.5 %; Platelet Count 189 X 10*3/uL (140-440); RBC 3.91 X 10*6/uL (4.40-5.60); RDW 15.9 % (11.5-14.5); WBC 10.39 X 10*3/uL (4.50-10.00)
[2024-06-12] MEDS: POTASSIUM CHLORIDE ER 20 MEQ TAB.ER PO SCH (11:00)
--- NOTE | 2024-06-12 11:10 | P.DS ---
Providers Date of admission: 06/11/24 08:20 Expected date of discharge: 06/12/24 Attending physician: Teresa Chris Consults: 06/10/24 14:28 Consult Physician Routine Consulting Provider: Kristofer Mane Consult Reason/Comments: Depression, alcohol misuse Do you want consulting provider notified?: Yes Primary care physician: [facility] [place] [facility] Course: Diagnosis on discharge: 1. Nausea and vomiting likely secondary from alcohol intoxication 2. History of EtOH abuse patient reports he drinks 1/5 of hard liquor a day 3. History of GERD 4. History of depression and PTSD 5. History of marijuana use 6. History of appendectomy 7. Severe depression with crying, patient stated that he had some suicidal ideation, at this time Lexapro 10 mg p.o. daily was added and psychiatry consultation was requested Hospital course: Malik hernandez is a 59-year-old male patient of Dr. Nobles who presented with concerns of alcohol intoxication and withdrawal patient also noted to have elevated lipase levels with a history of pancreatitis. Patient originally presented to [facility] and was transferred for further treatment. Patient has an extensive EtOH history patient admits to drinking 1/5 a day of hard liquor. Additional medical history includes GERD, depression, PTSD and marijuana use. Patient reports he had EGD completed approximately 4 months ago not currently in our records. Patient denies anything significant we will attempt to obtain. Lab work completed showing white blood cell 10.7, hemoglobin 13.7, platelet count 306, creatinine 0.70 bun 7 initial lactic acid 4.2 repeat 1.7. AST 47 ALT 41 alkaline phosphatase 107. Lipase level 304. At this time patient is sitting up comfortably in bed patient reports improvement with nausea and vomiting. Patient admitted and will be started on alcohol withdrawal protocol. Current vital signs temp 98.1, heart rate 87, respiratory rate 17, blood pressure 146/89 with a pulse ox of 97% on room air. Patient denies chest pain or shortness of breath. Patient denies nausea vomiting or diarrhea. Patient denies any urinary burning or frequency On 06/10/2024 patient was seen and examined on the medical floor he is alert and oriented x 3 in no apparent distress, he is still complaining of nausea and abdominal pain after eating otherwise he denies any complaints there is no fever or chills no headache or dizziness no chest pain no shortness of breath no cough no diarrhea no blood in the stools and no urinary symptoms. On 06/11/2024 patient is alert and oriented x 3. Awaiting psychiatry input. Patient remains depressed. Patient denies chest pain or shortness of breath. Patient denies nausea vomiting or diarrhea. Patient denies any urinary burning or frequency. Current vital signs temp 98.5, heart 98, respiratory rate 20, blood pressure 140/79 with a pulse ox of 98% on room air On 06/12/2024 patient was seen and examined on the medical floor he is alert and oriented x 3 in no apparent distress there is no fever or chills no headache or dizziness no chest pain no shortness of breath no cough no nausea or vomiting no abdominal pain no diarrhea and no urinary symptoms. Patient was evaluated by psychiatry, Abilify was added to his medication list, he was cleared for discharge to home. Was counseled in length in regard to alcohol cessation. Patient Condition at Discharge: Fair Plan - Discharge Summary Discharge Rx Participant: Yes New Discharge Prescriptions: New ARIPiprazole [Abilify] 5 mg PO DAILY 30 Days #30 tab Thiamine [Vitamin B-1] 100 mg PO DAILY 30 Days #30 tab Continue Multivitamins, Thera [Multivitamin (formulary)] 1 tab PO DAILY Omeprazole 20 mg PO BID LORazepam [Ativan] 1 mg PO BID PRN PRN Reason: Anxiety DULoxetine HCL [Cymbalta] 60 mg PO DAILY Discharge Medication List DULoxetine HCL [Cymbalta] 60 mg PO DAILY 06/09/24 [History] LORazepam [Ativan] 1 mg PO BID PRN 06/09/24 [History] Multivitamins, Thera [Multivitamin (formulary)] 1 tab PO DAILY 06/09/24 [History] Omeprazole 20 mg PO BID 06/09/24 [History] ARIPiprazole [Abilify] 5 mg PO DAILY 30 Days #30 tab 06/12/24 [Rx] Thiamine [Vitamin B-1] 100 mg PO DAILY 30 Days #30 tab 06/12/24 [Rx] Follow up Appointment(s)/Referral(s): Zainab Cancino MD [Primary Care Provider] - 1 Week (Patient prefers to make own appt. Plans to go to alcohol rehab. with the help of his [facility] worker. ) Patient Instructions/Handouts: Thiamine (By mouth), Aripiprazole (By mouth), Pancreatitis (DC), Abuse of Alcohol (DC) Discharge/Stand Alone Forms: AA [facility], Who Do I Call?, Outpatient Counseling, Outpatient Therapy List
--- NOTE | 2024-06-14 12:32 | CDI ---
Documentation Clarification Form Date: 06/14/2024 11:50:30 AM From: Alize Panchal RN, CCDS Email: [email or web address] Admit Date: 06/11/2024 08:20:00 AM Patient Name: Malik Do Visit Number: [id number] Discharge Date: 06/12/2024 11:58:00 AM ATTENTION: The Clinical Documentation Specialists (CDI) and [facility] Coding Staff appreciate your assistance in clarifying documentation. Please respond to the clarification below the line at the bottom and electronically sign. The CDI & [facility] Coding staff will review the response and follow-up if needed. Please note: Queries are made part of the Legal Health Record. If you have any questions, please contact the author of this message via ITS. Doctor Teresa hCris Pancreatitis is documented in the ED note. Additional clarification regarding the etiology and acuity of pancreatitis is requested. History/risk factors: GERD, depression, PTSD, marijuana use, daily heavy alcohol abuse and pancreatitis. Presented from other hospital with alcohol intoxication and withdrawal. Clinical Indicators: 06/08 ED: "Patient in today for evaluation of alcohol withdrawal, alcohol intoxication, elevated lipase levels and history of pancreatitis. Clinical Impression: Pancreatitis, Alcohol intoxication, Alcohol withdrawal." 06/10 IM: "he is still complaining of nausea and abdominal pain after eating." 06/10 Surgery consult: "Minimally elevated lipase now normalized." 06/12 Discharge summary: "presented with concerns of alcohol intoxication and withdrawal patient, also noted to have elevated lipase levels with a history of pancreatitis." 06/08-06/10 Lipase: [id number] Treatment: IVF D5.45 NS @80mL/hr 06/08-06/12; Morphine 4mg IVP Q4H prn for pain; Zofran 4mg IVP x1 on 06/08 then Q8H prn; 1L 0.9 NS IV bolus x1 on 06/08 Please clarify the acuity and etiology of the pancreatitis, if known: Acuity [ x] Acute pancreatitis [ ] Acute on Chronic pancreatitis [ ] Chronic pancreatitis [ ] Other, please specify ____ [ ] Unable to determine Etiology [x ] Alcohol induced pancreatitis [ ] Drug induced pancreatitis [ ] Other, please specify [ ] Unable to determine MTDD
== END 2024-06-12 11:58 | disposition home or self-care (01) | DRG 896 ==
LOC: EC 21:50 → 5NMEDONC 21:58 → OBSVTOIN 06-11 08:20
PROVIDERS: ADMIT Internal Medicine; ATTEND Internal Medicine
DX: F10.24 Alcohol dependence with alcohol-induced mood disorder (principal); K85.20 Alcohol induced acute pancreatitis without necrosis or infection; F10.229 Alcohol dependence with intoxication, unspecified; F10.239 Alcohol dependence with withdrawal, unspecified; F32.A Depression, unspecified; R45.851 Suicidal ideations; K21.9 Gastro-esophageal reflux disease without esophagitis; F43.10 Post-traumatic stress disorder, unspecified; Z77.22 Contact with and (suspected) exposure to environmental tobacco smoke (acute) (chronic); Z87.19 Personal history of other diseases of the digestive system; Z79.899 Other long term (current) drug therapy
CPT/HCPCS: 36415; 80053; 82150; 83605; 83690; 83735; 84484; 85025; 96361; 96374; 96375; 99285